=== PATIENT | female | born 1960 | race Caucasian/White ===

== ENCOUNTER 2019-11-06 14:27 | Inpatient (IN) | payer OTHER ==
[2019-11-06] MEDS ORDERED: SODIUM CHLORIDE 1,000 ML IV SCH ×2 (14:45→15:33)
[2019-11-06] MEDS ORDERED: MECLIZINE HCL 25 MG TABLET (FP) PO ONE (15:20)
--- NOTE | 2019-11-06 15:25 | PDOC ---
History of Present Illness - General Chief Complaint: Nausea/Vomiting Stated Complaint: R/O SEIZURE,VOMITING,DIZZINESS Time Seen by Provider: 11/06/19 14:43 - History of Present Illness Initial Comments: HPI: 59yo F with PMH of HTN, HLD, brain tumor s/p resection 11 year ago with residual right-sided weakness and seizures (on lamictal) presenting with dizziness and slurred speech. Patient's daughter is at the bedside providing collateral history. She reports that she was on FaceTime with her mother when around 12:50pm, she complained of sudden onset dizziness. The daughter believes the patient was speaking abnormally at that time. Did not witness jerking/ shaking motion consistent with patient's seizures. She appears to be at her baseline but weaker. No fevers, but endorses chills. ROS: Constitutional: no fever, no chills HEENT: no throat pain, no dysphagia Cardiovascular: no chest pain, no palpitations Respiratory: +cough, no shortness of breath Gastrointestinal: no abdominal pain, +vomiting Genitourinary: no dysuria, no hematuria Musculoskeletal: no myalgia, no arthralgia Skin: no rash, no itching Neurologic: +dizziness, +weakness PE: General: Awake, alert, and fully oriented, in no acute distress Head: No signs of trauma Eyes: EOMI, sclera anicteric, significant nystagmus about one beat per second ENT: Moist mucus membranes Neck: Normal ROM, supple Lungs: Lungs clear, Normal breath sounds Cardio: Regular rhythm, S1 and S2 present Abdomen: Soft, nontender. No guarding, no rebound, no masses Extremities: Normal range of motion, Distal pulses present SKIN: Warm, Dry, normal turgor Neurologic: please see NIHSS ED Course/MDM: DDX including but not limited to CVA/TIA, seizure, anemia, metabolic derangement Code Chiu CT head as read by radiology: " EXAM#: TYPE/EXAM: RESULT: [id number] CT/HEAD CT (STROKE) Cranial CT without contrast Clinical information: evaluate for CVA Multiplanar imaging was performed. Intravenous contrast was not administered. No intracranial hemorrhage is seen. There is no extra-axial fluid collection. No acute infarct is identified within the limitations of CT. Status post left pterional craniotomy with subjacent temporal lobe encephalomalacia. These findings were also described on an MRI exam of 02/26/2019. No obvious mass lesion is identified on noncontrast imaging. There is no obstructive hydrocephalus. No pathologic calvarial defect is noted. A verbal report was provided to emergency department personnel (Dr. Lee). Impression: No CT evidence of acute intracranial pathology. Status post left frontotemporal craniotomy with subjacent temporal lobe encephalomalacia. Reported By: Franco Smith MD 11/06/19 9434 " Discussed case with Dr. Candelario who agrees that patient is not a tpa candidate. We will admit for a CVA workup. Lamictal level ordered. 11/06/19 15:34 CBC WBC 9.5 K/mm3 (4.0-10.0) 11/06/19 15:19 RBC 4.55 M/mm3 (3.60-5.2) 11/06/19 15:19 Hgb 12.7 GM/dL (10.7-15.3) 11/06/19 15:19 Hct 38.9 % (32.4-45.2) 11/06/19 15:19 MCV 85.6 fl (80-96) 11/06/19 15:19 MCH 28.0 pg (25.7-33.7) 11/06/19 15:19 MCHC 32.7 g/dl (32.0-36.0) 11/06/19 15:19 RDW 14.0 % (11.6-15.6) 11/06/19 15:19 Plt Count 254 K/MM3 (134-434) 11/06/19 15:19 MPV 9.5 fl (7.5-11.1) 11/06/19 15:19 Absolute Neuts (auto) 6.9 K/mm3 (1.5-8.0) 11/06/19 15:19 Neutrophils % 73.3 % (42.8-82.8) 11/06/19 15:19 Lymphocytes % 17.4 % (8-40) 11/06/19 15:19 Monocytes % 5.4 % (3.8-10.2) 11/06/19 15:19 Eosinophils % 2.9 % (0-4.5) 11/06/19 15:19 Basophils % 1.0 % (0-2.0) 11/06/19 15:19 Nucleated RBC % 0 % (0-0) 11/06/19 15:19 No leukocytosis CMP Sodium 141 mmol/L (136-145) 11/06/19 15:19 Potassium 3.9 mmol/L (3.5-5.1) 11/06/19 15:19 Chloride 105 mmol/L (98-107) 11/06/19 15:19 Carbon Dioxide 29 mmol/L (21-32) 11/06/19 15:19 Anion Gap 8 MMOL/L (8-16) 11/06/19 15:19 BUN 21.7 mg/dL (7-18) H 11/06/19 15:19 Creatinine 1.0 mg/dL (0.55-1.3) 11/06/19 15:19 Est GFR (CKD-EPI)AfAm 70.42 11/06/19 15:19 Est GFR (CKD-EPI)NonAf 60.76 11/06/19 15:19 POC Glucometer 146 UNITS (80-120) 11/06/19 14:47 Random Glucose 146 mg/dL (74-106) H 11/06/19 15:19 Calcium 9.0 mg/dL (8.5-10.1) 11/06/19 15:19 Total Bilirubin 0.5 mg/dL (0.2-1) 11/06/19 15:19 AST 23 U/L (15-37) 11/06/19 15:19 ALT 23 U/L (13-61) 11/06/19 15:19 Alkaline Phosphatase 124 U/L (45-117) H 11/06/19 15:19 Creatine Kinase 142 U/L (26-192) 11/06/19 15:19 Troponin I < 0.02 ng/ml (0.00-0.05) 11/06/19 15:19 Total Protein 7.4 g/dl (6.4-8.2) 11/06/19 15:19 Albumin 3.9 g/dl (3.4-5.0) 11/06/19 15:19 Triglycerides 84 mg/dL (0-150) 11/06/19 15:19 Cholesterol 191 mg/dL (50-200) 11/06/19 15:19 Total LDL Cholesterol 116 mg/dL (5-100) H 11/06/19 15:19 HDL Cholesterol 59 mg/dL (40-60) 11/06/19 15:19 Electrolytes unremarkable Normal Cr no transaminitis Tpn undetectable LDL mildly elevated EKG: rate 59, Qtc 451, sinus bradycardia Plan for admission Microblog sent 11/06/19 17:[address] Kohler who accepted patient for stroke floor admission under himself 11/06/19 17:14 Per patient's daughter, the dose of patient's lamictal is 150mg BID. 11/06/19 17:42 tPA Exclusion Checklist 0-3hr - Time Elapsed Date last known well: 11/06/19 Time last known well: 12:50 Elaspsed time: 3 Day(s) and 20 Hour(s) and 55 Minutes - Thrombolytic Therapy Candidate Is the patient eligible for Thrombolytic Therapy?: No - Relative Exclusion Criteria 0-3h Stroke severity too mild: Yes - Ineligibility reason(s) Reasons No tPA given: See reason(s) noted above NIH Stroke Scale - Last Known Well Date/Time & Onset Date Last Known Well: 11/06/19 Time Last Known Well: 12:50 - Initial Evaluation Level of consciousness: Alert Ask patient the month and their age: Answers both correctly Ask patient to open & close eyes; make fist and let go: Obeys both correctly Best gaze (horizontal eye movement): Normal Visual field testing: No visual field loss Facial paresis (Show teeth/raise eyebrows/close eyes tight): Normal symmetrical movement Motor Function: Left Arm: Normal Motor Function: Right Arm: Normal (extends arm 90 (or 45) degrees for 10 seconds without drift Motor Function: Left Leg: Normal (extends leg 30 degrees for 5 seconds without drift) Motor Function: Right Leg: Drift Limb Ataxia: No ataxia Sensory(Use pinprick test arms,legs,trunk,face/side to side): Normal Best language (Describe picture, name items, read sentences): No Aphasia Dysarthria (read several words): Normal articulation Extinction and Inattention: No abnormality - Total Score NIH Stroke Scale Score: 1 Past History - Past Medical History Allergies/Adverse Reactions: Allergies Allergy/AdvReac Type Severity Reaction Status Date / Time No Known Allergies Allergy Verified 11/06/19 15:17 Home Medications: Ambulatory Orders Apixaban [Eliquis] 2.5 mg PO BID 11/06/19 Atenolol [Tenormin -] 25 mg PO DAILY 11/06/19 Lamotrigine 150 mg PO BID 11/06/19 Lisinopril 5 mg PO DAILY 11/06/19 Lovastatin 20 mg PO DAILY 11/06/19 Amox-Tr/K Cl [Augmentin 875-125mg Tablet -] 1 tab PO BID@0800,1730 #6 tablet 01/23 Meclizine HCl [Antivert -] 25 mg PO TID PRN #30 tablet 11/08/19 - Psycho Social/Smoking Cessation Hx Smoking History: Never smoked Hx Alcohol Use: No Drug/Substance Use Hx: No *Physical Exam - Vital Signs Last Vital Signs Temp Pulse Resp BP Pulse Ox 98.1 F 65 24 H 136/75 98 11/06/19 15:11 11/06/19 15:11 11/06/19 15:11 11/06/19 15:11 11/06/19 15:11 ED Treatment Course - LABORATORY CBC & Chemistry Diagram: 11/08/19 06:05 11/08/19 06:05 - ADDITIONAL ORDERS Additional order review: Laboratory Results 11/06/19 14:47 POC Glucometer 146 11/06/19 14:47 POC Glucometer 146 Discharge - Discharge Information Problems reviewed: Yes Clinical Impression/Diagnosis: Vertigo, Slurring of speech Condition: Improved Disposition: HOME - Admission Yes - Follow up/Referral - Patient Discharge Instructions - Post Discharge Activity
[2019-11-06] MEDS ORDERED: MECLIZINE HCL 25 MG TABLET (FP) ONE (15:39)
[2019-11-06 15:41] LABS: EOS % 2.9 % (0-4.5); HEMATOCRIT 38.9 % (32.4-45.2); HEMOGLOBIN 12.7 GM/dL (10.7-15.3); LYMPH % 17.4 % (8-40); MCHC 32.7 g/dl (32.0-36.0); MEAN CELL VOLUME 85.6 fl (80-96); MEAN PLT VOLUME 9.5 fl (7.5-11.1); MONO % 5.4 % (3.8-10.2); NEUT % 73.3 % (42.8-82.8); PLATELET COUNT 254 K/MM3 (134-434); RBC 4.55 M/mm3 (3.60-5.2); WHITE BLOOD COUNT 9.5 K/mm3 (4.0-10.0)
--- NOTE | 2019-11-06 16:07 | PDOC ---
Documentation entered by Debi Florez SCRIBE, acting as scribe for Lisandro Lee MD. Lisandro Lee MD: This documentation has been prepared by the Vikki danielson Xhesika, SCRIBE, under my direction and personally reviewed by me in its entirety. I confirm that the documentation accurately reflects all work, treatment, procedures, and medical decision making performed by me. Attending Attestation - Resident Resident Name: Emma Duran - ED Attending Attestation I have performed the following: I have examined & evaluated the patient, The case was reviewed & discussed with the resident, I agree w/resident's findings & plan, Exceptions are as noted - HPI HPI: 11/06/19 14:45 The patient is a 59 year old female with a PMH of seizures and brain surgery (s/ p resection 11 years ago at [facility]) who presents to the ED BIBA for dizziness and vomiting [employer]. Pt states she was on the phone with her daughter, went to open the door for her son, when she felt sudden onset room spinning dizziness and 1 episode of vomiting. Pt denies LOC or hitting head. Daughter reports slurred speech. Pt notes she was her normal self prior to being on the phone with her daughter. Pt states she has a history of seizure, but her seizures do not present like this. The patient denies chest pain or shortness of breath. Denies fever, chills, cough, nausea, diarrhea and constipation. Denies dysuria, frequency, urgency and hematuria. Allergies:, NKDA Social Hx: Denies current smoking, drinking, or other substance usage. - Physicial Exam PE: 11/06/19 16:07 Vitals: Triage Vital signs reviewed General Appearance: No acute distress, well nourished well developed, Head: Atraumatic, Eyes: Pupils equal reactive round, extraocular movement intact Cardiac: Regular rate and rhythym, no murmurs, no rubs, no gallops, Lungs: Clear to auscultation bilateral, good air movement bilaterally, Abdomen: Soft, non distended, normal bowel sounds, non tender to palpation Extremities: Full range of motion to all extremities, no cyanosis, clubbing, or edema Skin: Warm and dry, no rashes or lesions, no rash, no petechiae Neuro: mild 4 out of 5 right-sided weakness chronic from previous brain resection Normal sensation psych: Normal mood, normal affect - Medical Decision Making 11/06/19 16:08 Patient presents with episode of acute onset vertigo after changing positions and walking to door starting approximately 2 hours ago while on the phone with her daughter daughter stated that her speech appeared slurred which has since resolved code welch activated no acute pathology noted on head CT History examination most consistent with acute vertiginous episode however given slurred speech and patient with multiple risk factors previous brain surgery and seizure history will observe overnight for TIA evaluation and neurological consultation.
[2019-11-06 16:09] LABS: INR 0.99 (0.83-1.09); PROTHROMBIN TIME (PATIENT) 11.7 SEC (9.7-13.0)
[2019-11-06 16:12] LABS: ACTIVATED PTT 32.5 SECONDS (25.2-36.5)
[2019-11-06 16:13] LABS: ALBUMIN 3.9 g/dl (3.4-5.0); BILIRUBIN,TOTAL 0.5 mg/dL (0.2-1); BLOOD UREA NITROGEN 21.7 mg/dL (7-18); CHOLESTEROL 191 mg/dL (50-200); POTASSIUM 3.9 mmol/L (3.5-5.1); TOT PROT 7.4 g/dl (6.4-8.2)
[2019-11-06] MEDS ORDERED: MECLIZINE HCL 12.5 MG TABLET PO PRN (17:33)
--- NOTE | 2019-11-06 17:33 | HP ---
CHIEF COMPLAINT: Dizziness for few minutes PCP: HISTORY OF PRESENT ILLNESS: 59yo F with PMH of HTN, HLD, brain tumor s/p resection 11 year ago with residual right-sided weakness and seizures (on lamictal) presenting with dizziness and slurred speech. Patient's daughter is at the bedside providing collateral history. She reports that she was on FaceTime with her mother when around 12:50pm, she complained of sudden onset dizziness. The daughter believes the patient was speaking abnormally at that time. Did not witness jerking/ shaking motion consistent with patient's seizures. She appears to be at her baseline but weaker. No fevers, but endorses chills. In the ER oz welch was called and case was discussed with Dr. 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, history of DVTs on blood thinner PAST SURGICAL HISTORY: Brain tumor removal 2007, history of IVC filter Social History: Smoking: No smoking alcohol or drug use Alcohol: Drugs: Allergies No Known Allergies Allergy (Verified 11/06/19 15:17) HOME MEDICATIONS: REVIEW OF SYSTEMS CONSTITUTIONAL: Absent: fever, chills, diaphoresis, generalized weakness, malaise, loss of appetite, weight change HEENT: Absent: rhinorrhea, nasal congestion, throat pain, throat swelling, difficulty swallowing, mouth swelling, ear pain, eye pain, visual changes CARDIOVASCULAR: Absent: chest pain, syncope, palpitations, irregular heart rate, lightheadedness , peripheral edema RESPIRATORY: Absent: cough, shortness of breath, dyspnea with exertion, orthopnea, wheezing, stridor, hemoptysis GASTROINTESTINAL: Absent: abdominal pain, abdominal distension, nausea, vomiting, diarrhea, constipation, melena, hematochezia GENITOURINARY: Absent: dysuria, frequency, urgency, hesitancy, hematuria, flank pain, genital pain MUSCULOSKELETAL: Absent: myalgia, arthralgia, joint swelling, back pain, neck pain SKIN: Absent: rash, itching, pallor HEMATOLOGIC/IMMUNOLOGIC: Absent: easy bleeding, easy bruising, lymphadenopathy, frequent infections ENDOCRINE: Absent: unexplained weight gain, unexplained weight loss, heat intolerance, cold intolerance NEUROLOGIC: Absent: headache, focal weakness or paresthesias, , unsteady gait, seizure, mental status changes, bladder or bowel incontinence, present dizziness on left side movement PSYCHIATRIC: Absent: anxiety, depression, suicidal or homicidal ideation, hallucinations. PHYSICAL EXAMINATION Vital Signs - 24 hr 11/06/19 11/06/19 11/06/19 14:38 14:44 15:11 Temperature 97.8 F 98.1 F Pulse Rate 65 65 Pulse Rate [ 63 Right Radial] Respiratory 17 24 H Rate Blood Pressure 136/75 Blood Pressure 136/78 [Right Arm] O2 Sat by Pulse 96 98 98 Oximetry (%) GENERAL: Awake, alert, and fully oriented, in no acute distress. HEAD: Normal with no signs of trauma. EYES: Pupils equal, round and reactive to light, extraocular movements intact, sclera anicteric, conjunctiva clear. No lid lag. EARS, NOSE, THROAT: Ears normal, nares patent, oropharynx clear without exudates. Moist mucous membranes. NECK: Normal range of motion, supple without lymphadenopathy, JVD, or masses. LUNGS: Breath sounds equal, clear to auscultation bilaterally. No wheezes, and no crackles. No accessory muscle use. HEART: Regular rate and rhythm, normal S1 and S2 without murmur, rub or gallop. ABDOMEN: Soft, nontender, not distended, normoactive bowel sounds, no guarding, no rebound, no masses. No hepatomegaly or splenomegaly. MUSCULOSKELETAL: Normal range of motion at all joints. No bony deformities or tenderness. No CVA tenderness. UPPER EXTREMITIES: 2+ pulses, warm, well-perfused. No cyanosis. No clubbing. No peripheral edema. LOWER EXTREMITIES: 2+ pulses, warm, well-perfused. No calf tenderness. No peripheral edema. NEUROLOGICAL: Cranial nerves II-XII intact. Normal speech. She has slight gait limping on the right side. PSYCHIATRIC: Cooperative. Good eye contact. Appropriate mood and affect. SKIN: Warm, dry, normal turgor, no rashes or lesions noted, normal capillary refill. Laboratory Results - last 24 hr 11/06/19 11/06/19 11/06/19 14:47 15:19 15:19 WBC 9.5 RBC 4.55 Hgb 12.7 Hct 38.9 MCV 85.6 MCH 28.0 MCHC 32.7 RDW 14.0 Plt Count 254 MPV 9.5 Absolute Neuts (auto) 6.9 Neutrophils % 73.3 Lymphocytes % 17.4 Monocytes % 5.4 Eosinophils % 2.9 Basophils % 1.0 Nucleated RBC % 0 PT with INR INR PTT (Actin FS) Sodium Potassium Chloride Carbon Dioxide Anion Gap BUN Creatinine Est GFR (CKD-EPI)AfAm Est GFR (CKD-EPI)NonAf POC Glucometer 146 Random Glucose Calcium Total Bilirubin AST ALT Alkaline Phosphatase Creatine Kinase 142 Troponin I < 0.02 Total Protein Albumin Triglycerides Cholesterol 191 Total LDL Cholesterol HDL Cholesterol Blood Type Antibody Screen 11/06/19 11/06/19 11/06/19 15:19 15:20 15:30 WBC RBC Hgb Hct MCV MCH MCHC RDW Plt Count MPV Absolute Neuts (auto) Neutrophils % Lymphocytes % Monocytes % Eosinophils % Basophils % Nucleated RBC % PT with INR 11.70 INR 0.99 PTT (Actin FS) 32.5 Sodium 141 Potassium 3.9 Chloride 105 Carbon Dioxide 29 Anion Gap 8 BUN 21.7 H Creatinine 1.0 Est GFR (CKD-EPI)AfAm 70.42 Est GFR (CKD-EPI)NonAf 60.76 POC Glucometer Random Glucose 146 H Calcium 9.0 Total Bilirubin 0.5 AST 23 ALT 23 Alkaline Phosphatase 124 H Creatine Kinase Troponin I Total Protein 7.4 Albumin 3.9 Triglycerides 84 Cholesterol Total LDL Cholesterol 116 H HDL Cholesterol 59 Blood Type A POSITIVE Antibody Screen Negative Cranial CT without contrast Clinical information: evaluate for CVA Multiplanar imaging was performed. Intravenous contrast was not administered. No intracranial hemorrhage is seen. There is no extra-axial fluid collection. No acute infarct is identified within the limitations of CT. Status post left pterional craniotomy with subjacent temporal lobe encephalomalacia. These findings were also described on an MRI exam of 02/26/2019. No obvious mass lesion is identified on noncontrast imaging. There is no obstructive hydrocephalus. No pathologic calvarial defect is noted ASSESSMENT/PLAN: 59yo F with PMH of HTN, HLD, brain tumor s/p resection 11 year ago with residual right-sided weakness and seizures (on lamictal) presenting with dizziness and slurred speech. Even though she is a clear-cut case of dizziness but with history of slurring speech and her history and sudden onset of symptom will admit patient to the hospital for rule out TIA and observation overnight. Will order a neuro consult Dr. Baez of Carotid sonogram will add her meclizine as needed for the pain For high blood pressure and hyperlipidemia renew her home medications Her blood work in the hospital is normal. At this time patient does not remember her list of medication and her daughter will bring from the home. For chronic DVT history of will continue low-dose Eliquis 2.5 mg twice a day Current Medications Apixaban (Eliquis -) 2.5 mg PO BID FELIPE Atenolol (Tenormin -) 25 mg PO DAILY [facility] Sodium Chloride (Normal Saline -) 1,000 mls @ 1,000 mls/hr IV ASDIR FLEIPE Last Admin: 11/06/19 15:53 Dose: 1,000 mls/hr Lisinopril (Prinivil) 5 mg PO DAILY [facility] Meclizine HCl (Antivert -) 12.5 mg PO Q6H PRN PRN Reason: VERTIGO Non-Formulary Medication (Lamotrigine [Lamotrigine]) 150 mg PO BID FELIPE Non-Formulary Medication (Lovastatin [Lovastatin]) 20 mg PO DAILY [facility] Visit type - Emergency Visit Emergency Visit: Yes ED Registration Date: 11/06/19 Care time: The patient presented to the Emergency Department on the above date and was hospitalized for further evaluation of their emergent condition. - New Patient This patient is new to me today: Yes Date on this admission: 11/06/19 - Critical Care Critical Care patient: No
--- NOTE | 2019-11-06 18:56 | CONSULT ---
Consult - text type - Consultation Consultation Note: NEUROLOGY CONSULTATION is greatly appreciated: Events reviewed and discussed with Dr. Duran and ED RN, Theodora. Patient examined with her daughter, Kimberly, at the bedside. This 59 yo RH woman with h/o resection of left temporal meningioma at [facility] 11 years ago complicated by seizures controlled with lamotrigine (150 BID). DVT, s/p IVC filter- on apixiban, Today, while talking on the phone she ambulated to open the door then returned to sit down. At that moment she had the sudden onset of vertigo and nausea. This has persisted throughout the day, worsening with movement. She has not attempted to ambulate No tinnitus. + right sided hearing loss (Pt uses cell phone on left ear) CT of head (reviewed): s/p left temporal craniectomy. Left temporal encephalomalcia. JAMAR: No bruits. Cor reg. -Homans. S/p left temporal craniectomy NEURO: MS/speech: normal CN: Coarse conjugate right-beating horizontal nystagmus on right gaze and upgaze. Otherwise normal Motor: + Sustention tremor. No drift, Normal strength. Normal reflexes. Toes downgoing Coord: No FTN or HTS dystaxia Sensory: Normal Gait: Deferred IMP: 1.Acute positional vertigo (most likely due to Labyrinthitis, probably R sided) 2. Essential Tremor 3. Seizure disorder s/p resection of left temporal meningioma- no evidence of recurrence. Suggest: Continue meclizine 25 mg q 8 hrs (standing) until vertigo has resolved x 2 days Continue lamotrigine 150 mg BID. Levels sent. Thank you very much, Erwin Candelario MD
[2019-11-06 19:44] VITALS: BMI 36.0
[2019-11-06] MEDS: lamoTRIgine 100 MG TABLET (FP) PO SCH (21:27)
[2019-11-06] MEDS: APIXABAN 2.5 MG TABLET PO SCH (21:27)
[2019-11-06] MEDS: ATORVASTATIN CA 10 MG TABLET (FP) PO SCH (21:27)
[2019-11-06] MEDS ORDERED: LAMOTRIGINE 150 MG PO SCH (22:00)
[2019-11-07] MEDS ORDERED: ONDANSETRON 4 MG/2 ML VIAL IVPUSH ONE (05:30)
[2019-11-07] MEDS: MECLIZINE HCL 25 MG TABLET (FP) PO SCH ×3 (08:45→21:41)
--- NOTE | 2019-11-07 08:49 | PN ---
Teaching Attending Note Name of Resident: Funmilayo Bee ATTENDING PHYSICIAN STATEMENT I saw and evaluated the patient. I reviewed the resident's note and discussed the case with the resident. I agree with the resident's findings and plan as documented. SUBJECTIVE: Feels improved able to ambulate to the washroom denies any positional vertigo since hospitalization. OBJECTIVE: Vital Signs Temperature 98.3 F 11/07/19 06:00 Pulse Rate 61 11/07/19 06:00 Respiratory Rate 18 11/07/19 06:00 Blood Pressure 129/73 11/07/19 06:00 O2 Sat by Pulse Oximetry (%) 96 11/06/19 19:59 General: Middle-aged woman, comfortable, not in distress HEENT; status post craniotomy mucous membranes moist, no anemia, no jaundice, PERRLA, no nystagmus Neck: No JVD, supple, no bruit, thyroid palpably normal, normal carotid pulsations. Chest: Nontender, clear to auscultation bilaterally. CVS: S1-S2 regular no murmur/gallop/rub Abdomen: Nondistended, soft, bowel sounds present. Extremities: No edema., No cough tenderness, pulses present MANAGER VAN: AO X3 , right-sided residual weakness CBC, BMP 11/06/19 15:19 11/06/19 15:19 Active Medications Apixaban (Eliquis -) 2.5 mg PO BID [facility] Last Admin: 11/06/19 21:27 Dose: 2.5 mg Atenolol (Tenormin -) 25 mg PO DAILY [facility] Atorvastatin Calcium (Lipitor -) 10 mg PO HS [facility] Last Admin: 11/06/19 21:27 Dose: 10 mg Sodium Chloride (Normal Saline -) 1,000 mls @ 1,000 mls/hr IV ASDIR [facility] Last Admin: 11/06/19 15:53 Dose: 1,000 mls/hr Lamotrigine (Lamictal -) 150 mg PO BID [facility] Last Admin: 11/06/19 21:27 Dose: 150 mg Lisinopril (Prinivil) 5 mg PO DAILY [facility] Meclizine HCl (Antivert -) 25 mg PO TID [facility] ASSESSMENT AND PLAN:59yo F with PMH of HTN, HLD, brain tumor s/p resection 11 year ago with residual right-sided weakness and seizures (on lamictal) presenting with dizziness and slurred speech. Related by neurology, CT head no acute changes. Plan: Continue current management if cleared by neurology can be DC home Problem List - Problems (1) Vertigo Assessment/Plan: Sent with acute onset vertigo, episodic, positional, CT head no acute changes, evaluated by neurology, recommended meclizine symptoms are improving, PT evaluation if remains asymptomatic can be DC home after clearance from neurology. Will consider MRI brain if remains symptomatic. Problems reviewed: Yes Code(s): R42 - DIZZINESS AND GIDDINESS (2) History of DVT (deep vein thrombosis) Assessment/Plan: Continue apixaban Problems reviewed: Yes Code(s): Z86.718 - PERSONAL HISTORY OF OTHER VENOUS THROMBOSIS AND EMBOLISM (3) Brain mass Assessment/Plan: left temporal brain mass status post resection with secondary seizures on Problems reviewed: Yes Code(s): G93.89 - OTHER SPECIFIED DISORDERS OF BRAIN (4) Hemiplegia affecting right dominant side Assessment/Plan: Status post left temporal tumor resection Code(s): G81.91 - HEMIPLEGIA, UNSPECIFIED AFFECTING RIGHT DOMINANT SIDE (5) Seizure disorder Assessment/Plan: Secondary to brain tumor resection evaluated by neurology continue current management. Code(s): G40.909 - EPILEPSY, UNSP, NOT INTRACTABLE, WITHOUT STATUS EPILEPTICUS
[2019-11-07 09:07] LABS: EPI CELLS 1.4 /HPF (0-5/HPF); HYALINE CASTS 4 /lpf (0-8); PH,URINE 5.5 (5.0-8.0); URINE APPEARANCE CLEAR; URINE BACTERIA 92.9 /hpf (NEGATIVE); URINE BILIRUBIN NEGATIVE (NEGATIVE); URINE COLOR YELLOW; URINE GLUCOSE (UA) NEGATIVE (NEGATIVE); URINE KETONE NEGATIVE (NEGATIVE); URINE LEUK ESTERASE 1+ (NEGATIVE); URINE NITRITE NEGATIVE (NEGATIVE); URINE PROTEIN NEGATIVE (NEGATIVE); URINE RBC 2 /hpf (0-4); URINE UROBILINOGEN 0.2 mg/dL (0.2-1.0); URINE WBC 24 /hpf (0-5)
[2019-11-07] MEDS ORDERED: PATIENT'S OWN MEDICATION (NON-FORMULARY) (Lovastatin [Lovastatin] 20 MG) PO SCH (10:00)
[2019-11-07] MEDS: LISINOPRIL 5 MG TABLET (FP) PO SCH (10:20)
[2019-11-07] MEDS: lamoTRIgine 100 MG TABLET (FP) PO SCH ×2 (10:20→21:40)
[2019-11-07] MEDS: ATENOLOL 25 MG TABLET (FP) PO SCH (10:20)
[2019-11-07] MEDS: APIXABAN 2.5 MG TABLET PO SCH ×2 (10:20→21:41)
--- NOTE | 2019-11-07 11:52 | EKG ---
Test Reason : Blood Pressure : / mmHG Vent. Rate : 059 BPM Atrial Rate : 059 BPM P-R Int : 192 ms QRS Dur : 090 ms QT Int : 456 ms P-R-T Axes : 025 017 004 degrees QTc Int : 451 ms SINUS BRADYCARDIA OTHERWISE NORMAL ECG NO PREVIOUS ECGS AVAILABLE Confirmed by ANNIKA VALDEZ MD ([id number]) on 11/07/2019 11:52:26 AM Referred By: Confirmed By:ANNIKA VALDEZ MD
--- NOTE | 2019-11-07 12:57 | PN ---
Progress Note (short form) - Note Progress Note: Hospitalist Medicine Still endorses dizziness when ambulating. However , has improved with turning head. No seizure activity Vitals 11/07/19 10:19 Temperature 97.7 F Pulse Rate 62 Respiratory 18 Rate Blood Pressure 116/76 Physical Exam general: resting in bed HEENT: NCAT, PERRLA neck: supple cardio: S1, S2, RRR. no r/m/g pulm: CTA b/l abdomen: nontender, nondistended LE: 2+ pulses. no edema neuro: Skiver Box Toe 2-12 grossly intact, however w/ decreased strength 2/5 RUE, RLE. normal sensation +dizziness Laboratory Tests 11/06/19 11/06/19 11/06/19 07:00 15:19 15:19 WBC 9.5 Hgb 12.7 Hct 38.9 Plt Count 254 Sodium Potassium Chloride Carbon Dioxide Anion Gap BUN Creatinine Random Glucose Alkaline Phosphatase Creatine Kinase 142 Troponin I < 0.02 Total LDL Cholesterol Ur Leukocyte Esterase 1+ H Urine WBC (Auto) 24 Urine RBC (Auto) 2 Urine Casts (Auto) 4 U Epithel Cells (Auto) 1.4 Urine Bacteria (Auto) 92.9 Lamotrigine 11/06/19 11/06/19 15:19 16:40 WBC Hgb Hct Plt Count Sodium 141 Potassium 3.9 Chloride 105 Carbon Dioxide 29 Anion Gap 8 BUN 21.7 H Creatinine 1.0 Random Glucose 146 H Alkaline Phosphatase 124 H Creatine Kinase Troponin I Total LDL Cholesterol 116 H s/p L Ur Leukocyte Esterase Urine WBC (Auto) Urine RBC (Auto) Urine Casts (Auto) U Epithel Cells (Auto) Urine Bacteria (Auto) Lamotrigine Pending Imaging 11/06/19: EKG: sinus racquel, rate 59bpm, qtc 451ms. 11/06/19: Head CT: no CT evidence of acute intracranial pathology, s/p L frontotemporal craniotomy with subjacent temporal lobe encephalomalacia. Brain MRI 02/2019: L temporal cystic encephalomalacia with peripheral gliosis. increased signal intensity of periventricular white matter attributed to breakdown of ependymal lining, increase of ECF, and mild subendymal gliosis. small vessel microangiopathic ischemic changes, s/p L craniotomy. Assessment/Plan 59yo F with PMH of HTN, HLD, brain tumor s/p resection 11 years ago with residual right-sided weakness and seizures (on lamictal), DVT s/p IVC filter, presenting with dizziness and slurred speech. #Acute vertigo possible 2/2 labrynthitis, ?BPPV -may also be exacerbated by UTI -c/w meclizine 25mg TID FELIPE -physical therapy -c/t monitor for sx improvement . if still w/ sx will consider repeat brain MRI -Neuro: Dr. Candelario #Seizure d/o s/p resection L temporal meningioma -c/w lamictal 150mg BID -f/u lamictal level -sz precautions #UTI -UA+, symptomatic -started on augmentin (Day1) #HTN-controlled -c/w lisinopril, atenolol #HLD -c/w lipitor #DVT s/p IVC filter -c/w eliquis #F/E/N no need for IVF; encourage PO intake. continue to follow lytes na controlled diet #PPX DVT: on eliquis #Dispo monitoring on tele anticipate d/c 24hrs; once cleared by neuro, improved sx
[2019-11-07] MEDS: AMOX TR/POT CLAV 875MG/125MG TABLETS (FP) PO SCH (16:58)
[2019-11-07] MEDS: ATORVASTATIN CA 10 MG TABLET (FP) PO SCH (21:40)
[2019-11-08] MEDS: MECLIZINE HCL 25 MG TABLET (FP) PO SCH ×2 (06:05→13:11)
[2019-11-08 06:40] LABS: BASO % 0.8 % (0-2.0); EOS % 4.2 % (0-4.5); HEMATOCRIT 35.5 % (32.4-45.2); HEMOGLOBIN 11.7 GM/dL (10.7-15.3); LYMPH % 35.6 % (8-40); MCH 28.2 pg (25.7-33.7); MEAN CELL VOLUME 85.4 fl (80-96); MONO % 6.4 % (3.8-10.2); PLATELET COUNT 225 K/MM3 (134-434); RBC 4.16 M/mm3 (3.60-5.2); RDW 13.8 % (11.6-15.6); WHITE BLOOD COUNT 6.4 K/mm3 (4.0-10.0)
[2019-11-08 07:02] LABS: BLOOD UREA NITROGEN 15.2 mg/dL (7-18); MAGNESIUM 2.2 mg/dL (1.8-2.4); PHOSPHOROUS 3.8 mg/dL (2.5-4.9); POTASSIUM 3.6 mmol/L (3.5-5.1)
--- NOTE | 2019-11-08 07:58 | PN ---
Teaching Attending Note Name of Resident: Funmilayo Bee ATTENDING PHYSICIAN STATEMENT I saw and evaluated the patient. I reviewed the resident's note and discussed the case with the resident. I agree with the resident's findings and plan as documented. SUBJECTIVE: No new complaints, no episode of vertigo able to ambulate OBJECTIVE: Vital Signs Temperature 98.4 F 11/08/19 06:09 Pulse Rate 56 L 11/08/19 06:09 Respiratory Rate 18 11/08/19 06:09 Blood Pressure 135/76 11/08/19 06:09 O2 Sat by Pulse Oximetry (%) 95 11/07/19 20:40 General: Middle-aged woman, comfortable, not in distress HEENT; status post craniotomy mucous membranes moist, no anemia, no jaundice, PERRLA, no nystagmus Neck: No JVD, supple, no bruit, thyroid palpably normal, normal carotid pulsations. Chest: Nontender, clear to auscultation bilaterally. CVS: S1-S2 regular no murmur/gallop/rub Abdomen: Nondistended, soft, bowel sounds present. Extremities: No edema., No cough tenderness, pulses present BIOPHARMACEUTICAL REP: AO X3 , right-sided residual weakness at baseline no interval changes CBC, BMP 11/08/19 06:05 11/08/19 06:05 Active Medications Amoxicillin/Clavulanate Potassium (Augmentin - 875mg Tablet) 1 tab PO BID@0800, 1730 [facility] Last Admin: 11/07/19 16:58 Dose: 1 tab Apixaban (Eliquis -) 2.5 mg PO BID [facility] Last Admin: 11/07/19 21:41 Dose: 2.5 mg Atenolol (Tenormin -) 25 mg PO DAILY [facility] Last Admin: 11/07/19 10:20 Dose: 25 mg Atorvastatin Calcium (Lipitor -) 10 mg PO HS [facility] Last Admin: 11/07/19 21:40 Dose: 10 mg Lamotrigine (Lamictal -) 150 mg PO BID [facility] Last Admin: 11/07/19 21:40 Dose: 150 mg Lisinopril (Prinivil) 5 mg PO DAILY [facility] Last Admin: 11/07/19 10:20 Dose: 5 mg Meclizine HCl (Antivert -) 25 mg PO TID [facility] Last Admin: 11/08/19 06:05 Dose: 25 mg ASSESSMENT AND PLAN:59yo F with PMH of HTN, HLD, brain tumor s/p resection 11 year ago with residual right-sided weakness and seizures (on lamictal) presenting with dizziness and slurred speech. Related by neurology, CT head no acute changes. Vertigo resolved with meclizine most likely BPPV Problem List - Problems (1) Vertigo Assessment/Plan: Sent with acute onset vertigo, episodic, positional, CT head no acute changes, evaluated by neurology, recommended meclizine symptoms resolved no other new neurological deficit, PT evaluation if remains asymptomatic can be DC home, patient has regular follow-up with neurology at [facility] advised to visit his neurologist in a week or visit ED if recurrence of symptoms.. Problems reviewed: Yes Code(s): R42 - DIZZINESS AND GIDDINESS (2) History of DVT (deep vein thrombosis) Assessment/Plan: Continue apixaban Code(s): Z86.718 - PERSONAL HISTORY OF OTHER VENOUS THROMBOSIS AND EMBOLISM (3) Brain mass Assessment/Plan: left temporal brain mass status post resection with secondary seizures on Code(s): G93.89 - OTHER SPECIFIED DISORDERS OF BRAIN (4) Hemiplegia affecting right dominant side Assessment/Plan: Status post left temporal tumor resection Code(s): G81.91 - HEMIPLEGIA, UNSPECIFIED AFFECTING RIGHT DOMINANT SIDE (5) Seizure disorder Assessment/Plan: Secondary to brain tumor resection evaluated by neurology continue current management. Code(s): G40.909 - EPILEPSY, UNSP, NOT INTRACTABLE, WITHOUT STATUS EPILEPTICUS
[2019-11-08] MEDS: AMOX TR/POT CLAV 875MG/125MG TABLETS (FP) PO SCH (08:29)
[2019-11-08] MEDS: lamoTRIgine 100 MG TABLET (FP) PO SCH (09:51)
[2019-11-08] MEDS: LISINOPRIL 5 MG TABLET (FP) PO SCH (09:51)
[2019-11-08] MEDS: ATENOLOL 25 MG TABLET (FP) PO SCH (09:52)
[2019-11-08] MEDS: APIXABAN 2.5 MG TABLET PO SCH (09:52)
[2019-11-08 14:53] VITALS: BP 129/74; PULSE 56; TEMP 97.6
--- NOTE | 2019-11-08 17:57 | DS ---
Physical Exam: SUBJECTIVE: Patient seen and examined at bedside. Dizziness has subsided. Has been ambulating without trouble. Will need outpatient vestibular rehab, discussed with patient. OBJECTIVE: Vital Signs Period Temp Pulse Resp BP Sys/[place] Pulse Ox Last 24 Hr 97.6 F-98.4 F 56-71 16-20 108-138/53-79 95-96 Physical Exam general: resting in bed HEENT: NCAT, PERRLA neck: supple cardio: S1, S2, RRR. no r/m/g pulm: CTA b/l abdomen: nontender, nondistended LE: 2+ pulses. no edema neuro: [employer] 2-12 grossly intact, however w/ decreased strength 2/5 RUE, RLE. ( chronic) normal sensation +dizziness LABS Laboratory Results - last 24 hr 11/08/19 11/08/19 06:05 06:05 WBC 6.4 RBC 4.16 Hgb 11.7 Hct 35.5 MCV 85.4 MCH 28.2 MCHC 33.0 RDW 13.8 Plt Count 225 MPV 9.0 Absolute Neuts (auto) 3.4 Neutrophils % 53.0 D Lymphocytes % 35.6 D Monocytes % 6.4 Eosinophils % 4.2 Basophils % 0.8 Nucleated RBC % 0 Sodium 142 Potassium 3.6 Chloride 107 Carbon Dioxide 29 Anion Gap 6 L1 BUN 15.2 Creatinine 1.0 Est GFR (CKD-EPI)AfAm 70.42 Est GFR (CKD-EPI)NonAf 60.76 Random Glucose 89 Calcium 9.0 Phosphorus 3.8 Magnesium 2.2 11/06/19 11/08/19 15:19 06:05 WBC 9.5 6.4 Hgb 12.7 11.7 Hct 38.9 35.5 Plt Count 254 225 11/06/19 15:30 PT with INR 11.70 INR 0.99 PTT (Actin FS) 32.5 11/06/19 11/06/19 11/08/19 15:19 15:19 06:05 Sodium 141 142 Potassium 3.9 3.6 Chloride 105 107 Anion Gap 8 6 L BUN 21.7 H 15.2 Creatinine 1.0 1.0 Random Glucose 146 H 89 Total Bilirubin 0.5 AST 23 ALT 23 Alkaline Phosphatase 124 H Creatine Kinase 142 Troponin I < 0.02 Total Protein 7.4 Albumin 3.9 Triglycerides 84 Cholesterol 191 Total LDL Cholesterol 116 H HDL Cholesterol 59 01/01/20 07:00 Ur Leukocyte Esterase 1+ H Urine WBC (Auto) 24 Urine RBC (Auto) 2 Urine Casts (Auto) 4 U Epithel Cells (Auto) 1.4 Urine Bacteria (Auto) 92.9 11/06/19 16:40 Lamotrigine Pending Imaging 11/06/19: EKG: sinus racquel, rate 59bpm, qtc 451ms. 11/06/19: Head CT: no CT evidence of acute intracranial pathology, s/p L frontotemporal craniotomy with subjacent temporal lobe encephalomalacia. Brain MRI 02/2019: L temporal cystic encephalomalacia with peripheral gliosis. increased signal intensity of periventricular white matter attributed to breakdown of ependymal lining, increase of ECF, and mild subendymal gliosis. small vessel microangiopathic ischemic changes, s/p L craniotomy. HOSPITAL COURSE: Date of Admission:11/06/19 Date of Discharge: 11/08/19 59yo F with PMH of HTN, HLD, brain tumor s/p resection 11 years ago with residual right-sided weakness and seizures (on lamictal), DVT s/p IVC filter, presenting with dizziness and slurred speech. #Acute vertigo possible 2/2 labrynthitis, ?BPPV -may also be exacerbated by UTI -c/w meclizine 25mg TID PRN at home -physical therapy, vestibular rehab needed as outpatient. d/w patient -Neuro: Dr. Candelario; will f/u with as outpatient #Seizure d/o s/p resection L temporal meningioma -c/w lamictal 150mg BID -f/u lamictal level, will be followed by PMD, neuro -sz precautions #UTI -UA+, symptomatic -augmentin - 3 more days to complete 5 day course #HTN-controlled -c/w lisinopril, atenolol #HLD -c/w lipitor #DVT s/p IVC filter -c/w eliquis Minutes to complete discharge: 45 Discharge Summary Problems reviewed: Yes Reason For Visit: SLURRED SPEECH, VERTIGO Current Active Problems Slurring of speech (Acute) Vertigo (Acute) Brain mass (Chronic) Hemiplegia affecting right dominant side (Chronic) History of DVT (deep vein thrombosis) (Chronic) Hypertension (Chronic) Seizure disorder (Chronic) Condition: Improved - Instructions Diet, Activity, Other Instructions: You were in the hospital because you had vertigo. You had a CT scan of your head which did not show acute changes. You will need vestibular physical therapy to help with your balance as an outpatient. You were seen by a primary medicine team as well as a neurologist. While here, you were also found to have a urinary tract infection. You improved and are being sent home. Medications Please continue the following medications at home: -Augmentin 875mg twice a day for 3 more days (starting tomorrow) for your urinary tract infection -Meclizine 25mg every 8 hours as needed for dizziness -Please continue your other home medications. Care You will need vestibular rehab/ physical therapy on discharge as an outpatient. This will help with your balance. Make sure to stay hydrated. Follow up Please follow with the following physicians on your discharge: -your primary care provider, Dr. Craft - this upcoming week to discuss your visit. -neurologist, Dr. Candelario who saw you in the hospital - this week. He will also check the lamotrigine (lamictal) level you had done in the hospital, and see if your dose of lamictal needs to be changed. Referrals: Regan Barber MD [Staff Physician] - 1 Week Erwin Candelario MD [Staff Physician] - 1 Week Disposition: HOME - Home Medications Comprehensive Discharge Medication List: Ambulatory Orders Apixaban [Eliquis] 2.5 mg PO BID 11/06/19 Atenolol [Tenormin -] 25 mg PO DAILY 11/06/19 Lamotrigine 150 mg PO BID 11/06/19 Lisinopril 5 mg PO DAILY 11/06/19 Lovastatin 20 mg PO DAILY 11/06/19 Amox-Tr/K Cl [Augmentin 875-125mg Tablet -] 1 tab PO BID@0800,1730 #6 tablet 01/23 Meclizine HCl [Antivert -] 25 mg PO TID PRN #30 tablet 11/08/19 This patient is new to me today: No Emergency Visit: No Critical Care patient: No - Discharge Referral Referred to [facility] Yes Physician Referral: Regan Craft MD ([facility])
== END 2019-11-08 17:55 | disposition home or self-care (01) | DRG 149 ==
LOC: JER 14:27 → JERBED 17:02 → J4S 18:57
PROVIDERS: ADMIT Internal Medicine; ATTEND Internal Medicine
DX: H83.09 Labyrinthitis, unspecified ear (principal); G81.91 Hemiplegia, unspecified affecting right dominant side; N39.0 Urinary tract infection, site not specified; H81.10 Benign paroxysmal vertigo, unspecified ear; E78.5 Hyperlipidemia, unspecified; I10 Essential (primary) hypertension; R47.81 Slurred speech; G40.909 Epilepsy, unspecified, not intractable, without status epilepticus; G25.0 Essential tremor
CPT/HCPCS: 36415; 70450-TC; 80048; 80053; 80175; 81003; 82465; 82550; 82962; 83718; 83721; 83735; 84100; 84478; 84484; 85025; 85610; 85730; 86850; 86900; 86901; 93005; 93010; 97116-GP; 97161-GP; 99284-25; J7030

== ENCOUNTER 2021-12-05 19:05 | Inpatient (IN) | payer OTHER ==
[2021-12-05 19:57] VITALS: BMI 38.2
[2021-12-05 21:24] LABS: BASO % 0.6 % (0-2.0); EOS % 2.1 % (0-4.5); HEMATOCRIT 40.1 % (32.4-45.2); HEMOGLOBIN 13.2 GM/dL (10.7-15.3); LYMPH % 9.4 % (8-40); MCH 27.8 pg (25.7-33.7); MCHC 32.9 g/dl (32.0-36.0); MEAN CELL VOLUME 84.6 fl (80-96); MEAN PLT VOLUME 8.3 fl (7.5-11.1); MONO % 5.9 % (3.8-10.2); PLATELET COUNT 290 10^3/uL (134-434); RBC 4.75 M/mm3 (3.60-5.2); RDW 12.8 % (11.6-15.6); WHITE BLOOD COUNT 16.9 K/mm3 (4.0-10.0)
[2021-12-05 21:31] LABS: INR 1.2 (0.83-1.09); PROTHROMBIN TIME (PATIENT) 13.8 SEC (9.7-13.0)
[2021-12-05 21:34] LABS: ACTIVATED PTT 34.9 SECONDS (25.2-36.5)
[2021-12-05 21:48] LABS: ALBUMIN 4.1 g/dl (3.4-5.0); BLOOD UREA NITROGEN 35.4 mg/dL (7-18); CALCIUM 9.8 mg/dL (8.5-10.1)
[2021-12-05 21:52] LABS: CREATININE 1.9 mg/dL (0.55-1.3)
[2021-12-05 21:54] LABS: TOT PROT 9.5 g/dl (6.4-8.2)
[2021-12-05 21:56] LABS: N-TERMINAL BNP 87.4 pg/ml (5-125)
[2021-12-05] MEDS ORDERED: ACETAMINOPHEN 1000 MG/100 ML BAG IVPB ONE (22:42)
[2021-12-05] MEDS ORDERED: ACETAMINOPHEN INJECTION 100 ML IVPB ONE (22:46)
[2021-12-05] MEDS ORDERED: HEPARIN NA (PORCINE) 5,000 UNITS/ML 1ML VIAL IVPUSH ONE (22:46)
[2021-12-05] MEDS ORDERED: HEPARIN NA (PORCINE) 5,000 UNITS/ML 1ML VIAL ONE (23:15)
[2021-12-06] MEDS ORDERED: HEPARIN NA (PORCINE) 5,000 UNITS/ML 1ML VIAL IVPUSH PRN ×2 (00:17)
[2021-12-06] MEDS ORDERED: HEPARIN - 25,000 UNIT in SODIUM CHLORIDE 495 ML IV SCH (00:30)
[2021-12-06] MEDS ORDERED: HEPARIN INFUSION - 25,000 UNITS/500 ML INFUS.BAG IVPB ONE (00:48)
[2021-12-06 04:06] LABS: EPI CELLS 30 /uL (0-25.1); HYALINE CASTS 8 /uL (0-3.1); URINE APPEARANCE CLEAR; URINE BACTERIA 368 /uL (0-1359); URINE BILIRUBIN NEGATIVE (NEGATIVE); URINE COLOR YELLOW; URINE GLUCOSE (UA) NEGATIVE (NEGATIVE); URINE KETONE TRACE (NEGATIVE); URINE LEUK ESTERASE NEGATIVE (NEGATIVE); URINE NITRITE NEGATIVE (NEGATIVE); URINE PROTEIN 1+ (NEGATIVE); URINE UROBILINOGEN 0.2 mg/dL (0.2-1.0); URINE WBC 15 /uL (0-25.8)
[2021-12-06 04:12] LABS: HEMATOCRIT 38.1 % (32.4-45.2); HEMOGLOBIN 12.5 GM/dL (10.7-15.3); MCH 27.8 pg (25.7-33.7); MCHC 32.9 g/dl (32.0-36.0); MEAN CELL VOLUME 84.6 fl (80-96); MEAN PLT VOLUME 8.2 fl (7.5-11.1); PLATELET COUNT 243 10^3/uL (134-434); RBC 4.51 M/mm3 (3.60-5.2); RDW 12.7 % (11.6-15.6); WHITE BLOOD COUNT 14.5 K/mm3 (4.0-10.0)
[2021-12-06 07:45] LABS: URINE RBC 17.3 /uL (0-23.9)
[2021-12-06] MEDS ORDERED: MECLIZINE HCL 25 MG TABLET (FP) PO PRN (07:56)
[2021-12-06 09:01] LABS: HEMATOCRIT 37.8 % (32.4-45.2); HEMOGLOBIN 12.2 GM/dL (10.7-15.3); MCH 27.5 pg (25.7-33.7); MCHC 32.4 g/dl (32.0-36.0); MEAN CELL VOLUME 84.9 fl (80-96); MEAN PLT VOLUME 8.9 fl (7.5-11.1); PLATELET COUNT 249 10^3/uL (134-434); RBC 4.46 M/mm3 (3.60-5.2); RDW 12.9 % (11.6-15.6); WHITE BLOOD COUNT 13.2 K/mm3 (4.0-10.0)
[2021-12-06] MEDS ORDERED: lamoTRIgine 100 MG TABLET ONE ×2 (09:02→20:32)
[2021-12-06] MEDS ORDERED: lamoTRIgine 25 MG TABLET ONE ×2 (09:02→20:32)
[2021-12-06] MEDS: ATENOLOL 25 MG TABLET (FP) PO SCH (09:04)
[2021-12-06] MEDS: PANTOPRAZOLE SODIUM 40 MG VIAL IVPUSH SCH (09:05)
[2021-12-06] MEDS: ENOXAPARIN NA (PORCINE) 100 MG/1 ML DISP.SYRIN SQ SCH ×2 (09:05→21:30)
[2021-12-06] MEDS: LAMOTRIGINE 100 MG, LAMOTRIGINE 50 MG PO SCH ×2 (09:05→21:31)
[2021-12-06] MEDS: ESCITALOPRAM OXALATE 10 MG TABLET PO SCH (09:05)
[2021-12-06] MEDS ORDERED: PATIENT'S OWN MEDICATION (NON-FORMULARY) (Lamotrigine [Lamotrigine] 150 MG Tablet) PO SCH (10:00)
[2021-12-06 11:39] LABS: CREATININE, URINE RANDOM > 300.0 mg/dL (30-150)
[2021-12-06 11:44] LABS: ALBUMIN 3.6 g/dl (3.4-5.0); BILIRUBIN,TOTAL 0.9 mg/dL (0.2-1); BLOOD UREA NITROGEN 37.2 mg/dL (7-18); CALCIUM 9.3 mg/dL (8.5-10.1); CREATININE 1.6 mg/dL (0.55-1.3); MAGNESIUM 2.6 mg/dL (1.8-2.4); PHOSPHOROUS 4.5 mg/dL (2.5-4.9)
[2021-12-06 18:00] LABS: PH,URINE 5.5 (5.0-8.0); URINE APPEARANCE CLEAR; URINE BILIRUBIN NEGATIVE (NEGATIVE); URINE COLOR YELLOW; URINE GLUCOSE (UA) NEGATIVE (NEGATIVE); URINE KETONE NEGATIVE (NEGATIVE); URINE LEUK ESTERASE NEGATIVE (NEGATIVE); URINE NITRITE NEGATIVE (NEGATIVE); URINE PROTEIN NEGATIVE (NEGATIVE); URINE UROBILINOGEN 0.2 mg/dL (0.2-1.0)
[2021-12-06] MEDS: INSULIN SLIDING SCALE (NOVOLOG) 1 VIAL SQ SCH (21:31)
[2021-12-06] MEDS: ATORVASTATIN CA 40 MG TABLET (FP) PO SCH (21:31)
[2021-12-06] MEDS: risperiDONE 0.5 MG TABLET PO SCH (21:31)
[2021-12-07] MEDS: INSULIN SLIDING SCALE (NOVOLOG) 1 VIAL SQ SCH ×4 (06:11→22:30)
[2021-12-07 09:10] LABS: CALCIUM 9.2 mg/dL (8.5-10.1)
[2021-12-07 09:11] LABS: ALBUMIN 3.4 g/dl (3.4-5.0)
[2021-12-07 09:14] LABS: CREATININE 1.3 mg/dL (0.55-1.3)
[2021-12-07 09:16] LABS: BILIRUBIN,TOTAL 1.2 mg/dL (0.2-1); TOT PROT 7.8 g/dl (6.4-8.2)
[2021-12-07] MEDS ORDERED: lamoTRIgine 100 MG TABLET ONE ×2 (09:23→21:21)
[2021-12-07] MEDS ORDERED: lamoTRIgine 25 MG TABLET ONE ×2 (09:23→21:22)
[2021-12-07] MEDS: ENOXAPARIN NA (PORCINE) 100 MG/1 ML DISP.SYRIN SQ SCH ×2 (09:40→21:50)
[2021-12-07] MEDS: PANTOPRAZOLE SODIUM 40 MG VIAL IVPUSH SCH (09:45)
[2021-12-07] MEDS: ESCITALOPRAM OXALATE 10 MG TABLET PO SCH (10:10)
[2021-12-07] MEDS: ATENOLOL 25 MG TABLET (FP) PO SCH (10:10)
[2021-12-07] MEDS: LAMOTRIGINE 100 MG, LAMOTRIGINE 50 MG PO SCH ×2 (10:10→21:50)
[2021-12-07] MEDS: ATORVASTATIN CA 40 MG TABLET (FP) PO SCH (21:50)
[2021-12-07] MEDS: risperiDONE 0.5 MG TABLET PO SCH (21:51)
[2021-12-08] MEDS: INSULIN SLIDING SCALE (NOVOLOG) 1 VIAL SQ SCH ×4 (06:41→22:00)
[2021-12-08 08:56] LABS: HEMATOCRIT 35.1 % (32.4-45.2); HEMOGLOBIN 11.8 GM/dL (10.7-15.3); MCH 28.5 pg (25.7-33.7); MCHC 33.8 g/dl (32.0-36.0); MEAN CELL VOLUME 84.3 fl (80-96); MEAN PLT VOLUME 8.8 fl (7.5-11.1); PLATELET COUNT 263 10^3/uL (134-434); RBC 4.16 M/mm3 (3.60-5.2); RDW 12.4 % (11.6-15.6); WHITE BLOOD COUNT 7.8 K/mm3 (4.0-10.0)
[2021-12-08] MEDS ORDERED: lamoTRIgine 25 MG TABLET ONE ×2 (09:04→22:37)
[2021-12-08] MEDS ORDERED: lamoTRIgine 100 MG TABLET ONE ×2 (09:04→22:37)
[2021-12-08] MEDS: ESCITALOPRAM OXALATE 10 MG TABLET PO SCH (09:17)
[2021-12-08] MEDS: LAMOTRIGINE 100 MG, LAMOTRIGINE 50 MG PO SCH ×2 (09:17→22:49)
[2021-12-08] MEDS: ATENOLOL 25 MG TABLET (FP) PO SCH (09:18)
[2021-12-08] MEDS: PANTOPRAZOLE SODIUM 40 MG VIAL IVPUSH SCH (09:51)
[2021-12-08] MEDS: ENOXAPARIN NA (PORCINE) 100 MG/1 ML DISP.SYRIN SQ SCH ×2 (09:57→22:49)
[2021-12-08] MEDS ORDERED: ACETAMINOPHEN 325 MG TABLET (FP) PO PRN (18:50)
[2021-12-08] MEDS: risperiDONE 0.5 MG TABLET PO SCH (22:49)
[2021-12-08] MEDS: ATORVASTATIN CA 40 MG TABLET (FP) PO SCH (22:49)
[2021-12-09] MEDS: INSULIN SLIDING SCALE (NOVOLOG) 1 VIAL SQ SCH ×2 (06:36→12:53)
[2021-12-09 09:08] LABS: HEMATOCRIT 34.8 % (32.4-45.2); HEMOGLOBIN 11.5 GM/dL (10.7-15.3); MCH 28.3 pg (25.7-33.7); MEAN CELL VOLUME 85.7 fl (80-96); PLATELET COUNT 272 10^3/uL (134-434); RBC 4.06 M/mm3 (3.60-5.2); RDW 12.6 % (11.6-15.6); WHITE BLOOD COUNT 7.3 K/mm3 (4.0-10.0)
[2021-12-09] MEDS ORDERED: lamoTRIgine 100 MG TABLET ONE (09:25)
[2021-12-09] MEDS ORDERED: lamoTRIgine 25 MG TABLET ONE (09:25)
[2021-12-09] MEDS: PANTOPRAZOLE SODIUM 40 MG VIAL IVPUSH SCH (10:44)
[2021-12-09] MEDS: ATENOLOL 25 MG TABLET (FP) PO SCH (10:44)
[2021-12-09] MEDS: LAMOTRIGINE 100 MG, LAMOTRIGINE 50 MG PO SCH (10:44)
[2021-12-09] MEDS: ENOXAPARIN NA (PORCINE) 100 MG/1 ML DISP.SYRIN SQ SCH (10:44)
[2021-12-09] MEDS: ESCITALOPRAM OXALATE 10 MG TABLET PO SCH (10:45)
[2021-12-09 16:24] VITALS: BP 139/64; PULSE 74; TEMP 98.3
== END 2021-12-09 18:11 | disposition home or self-care (01) | DRG 300 ==
LOC: JER 19:05 → JERBED 22:41 → J8W 12-06 04:06
PROVIDERS: ADMIT Internal Medicine; ATTEND Nurse Practitioner Family
DX: I82.412 Acute embolism and thrombosis of left femoral vein (principal); N17.9 Acute kidney failure, unspecified; I10 Essential (primary) hypertension; E11.9 Type 2 diabetes mellitus without complications; G40.909 Epilepsy, unspecified, not intractable, without status epilepticus; E66.9 Obesity, unspecified; Z68.38 Body mass index [BMI] 38.0-38.9, adult; F32.A Depression, unspecified; E78.5 Hyperlipidemia, unspecified; D32.9 Benign neoplasm of meninges, unspecified; D72.829 Elevated white blood cell count, unspecified
CPT/HCPCS: 36415; 71045-TC-FY; 76775-TC; 80053; 81003; 82310; 82436; 82550; 82570; 82962; 83036; 83735; 83880; 83970; 84100; 84133; 84155; 84156; 84165; 84166; 84300; 85025; 85027; 85379; 85610; 85730; 87040; 93005; 93010; 93971-TC; 97116-GP; 97161-GP; 99285-25; C9803-CS; J1644; U0003; U0005